=== PATIENT | male | born 1965 | race African-American/Black ===

== ENCOUNTER 2016-11-15 16:55 | Emergency (ER) | payer BC ==
[~2016-11-15] VITALS: Ht 188 cm; Wt 101.6 kg
--- NOTE | ~2016-11-15 | EKG ---
[address] [address] ELECTROCARDIOGRAM REPORT Name: HAIR GARCIA Room #: [facility]#: [id number] Admission: 11/15/16 Attend Phys: Discharge: 11/15/16 Date of : 69 Report #: [id number] THIS REPORT FOR: //name// [facility] ED Test Date: 2016-11-15 Test Time: 17:21:26 Pat Name: HAIR GARCIA Department: Room: Gender: M Interactive Graphic Designer: pedro : 1965 Requested By: Fabian Begum Order Number: [id number] MD: Mike Lim Measurements Intervals [place] Rate: 83 P: 46 [place]: 168 QRS: 34 QRSD: 89 T: 30 QT: 376 QTc: 442 Interpretive Statements Sinus rhythm Borderline low voltage, extremity leads RSR' in V1 or V2, probably normal variant No previous ECG available for comparison Electronically Signed On 11-16-2016 7:20:50 CDT by Mike Lim [email or web address] <ELECTRONICALLY SIGNED> By: Mike Lim MD, [facility] 11/16/16 0720 D: [id number] 20 Mike Lim MD, FACC /EPI
[2016-11-15] MEDS ORDERED: METFORMIN HCL500 MG PO (17:36)
[2016-11-15] MEDS ORDERED: NORVASC10 MG PO (17:37)
[2016-11-15] MEDS ORDERED: GABAPENTIN100 MG PO (17:37)
[2016-11-15] MEDS ORDERED: HYDROCHLOROTHIA25 M2 PO (17:37)
[2016-11-15] MEDS ORDERED: PRAVACHOL40 MG PO (17:37)
[2016-11-15] MEDS ORDERED: CYCLOBENZAPRINE5 MG PO (17:38)
[2016-11-15] MEDS ORDERED: VALACYCLOVIR1000 MG PO (17:38)
[2016-11-15] MEDS ORDERED: XANAX 0.5 MG0.5 MG PO (17:38)
[2016-11-15] MEDS ORDERED: ALTACE2.5 MG PO (17:41)
[2016-11-15] MEDS ORDERED: OXYBUTYNIN 5 MG5 M2 PO (17:41)
[2016-11-15] MEDS ORDERED: ZETIA10 MG PO (17:42)
[2016-11-15 17:45] LABS: HEMATOCRIT 38.2 % (42.0-52.0); HEMOGLOBIN 12.7 gm/dL (14.0-18.0); MCH 28.2 pg (26.0-34.0); MCHC 33.2 g/dL (28.0-37.0); MCV 84.8 fL (80.0-100.0); PLATELET COUNT 193 thou/uL (150-400); RBC 4.51 mil/uL (4.50-6.00); RDW 13.1 % (10.5-14.5); WBC 4.8 thou/uL (4.0-11.0)
[2016-11-15 17:51] LABS: ANION GAP 7 mmol/L (7-16); BUN 26 mg/dL (7-18); CALCIUM 9.4 mg/dL (8.5-10.1); CHLORIDE 101 mmol/L (98-107); CO2 29 mmol/L (21-32); CREATININE 1.7 mg/dL (0.7-1.3); GLUCOSE 151 mg/dL (74-106); MANUAL DIFF YES; POTASSIUM 3.5 mmol/L (3.5-5.1); SODIUM 137 mmol/L (136-145)
[2016-11-15 18:03] LABS: NT-PRO BRAIN NAT PEPTIDE 34 pg/mL (<300); TROPONIN-I < 0.04 ng/mL (<0.04-0.07)
[2016-11-15 18:12] LABS: ABSOLUTE NEUTROPHILS 2.5 thou/uL (1.4-8.2); BURR CELLS 1+; POLYCHROMASIA 1+; TOTAL CELL COUNT 100
[2016-11-15 20:11] LABS: GLUCOSE 170 mg/dL (74-106); TROPONIN-I < 0.04 ng/mL (<0.04-0.07)
[2016-11-15 20:45] VITALS: BP 94/67
== END 2016-11-15 20:45 | disposition home or self-care (01) ==
LOC: ER 16:55
PROVIDERS: Nurse Practitioner
DX: R53.1 Weakness (principal); Z88.1 Allergy status to other antibiotic agents